=== PATIENT | female | born 1985 | race Caucasian/White ===

== ENCOUNTER 2024-04-05 14:46 | Outpatient (CLI) | payer BC, SELFPAY ==
--- OUTSIDE RECORDS SUMMARY | 2024-04-05 14:48 | XMS_ITS | Clinical Summary ---
Author Name Unknown Organization [facility] [facility] Address [place], [place] [address] Care Team Providers Care Custom Car Builder Name Role Phone Anila Galloway NP Primary Care Provider +1- [phone] Allergies No known active allergies Medications Medication Sig Dispensed Refills Start Date End Date Status ondansetron (ZOFRAN ODT) 4 mg disintegrating tabletIndications:Gastr oenteritis Place 1 Tablet (4 mg) on the tongue two times daily. 10 Tablet 03/20/2024 Active Active Problems No known active problems Encounters Date Type Department Care Team Description 03/20/2024 12:51 PM CDT - 03/20/2024 2:45 PM CDT Emergency [facility] - [address] [place] [address] Carri Jaimes PA-C Gastroenteritis (Primary Dx); Bloody diarrhea Discharge Disposition: Home Self Care 03/09/2024 Lab Requisition [facility] [phone] Viktoriya Morrison MD from Last 3 Months Immunizations Name Administration Dates Next Due Influenza, IIV3 (Age >=3 years) 08/28/2012 Tdap 12/08/2015,03/25/2008 Family History Relation Name Status Comments Brother 1 Alive Brother 2 Alive Father Alive Mother Sister Alive Social History Tobacco Use Types Packs/Day Years Used Date Smoking Tobacco: Never Passive Smoke Exposure: Never Smokeless Tobacco: Never Tobacco Cessation:Counseling Given: No Alcohol Use Standard Drinks/Week Comments Yes 0 (1 standard drink = 0.6 oz pur e alcohol) Maybe 2 a month PHQ-2 Answer Date Recorded PHQ-2 Score 0 05/10/2019 Sex and Gender Information Value Date Recorded Sex Assigned at Not on file Gender Identity Not on file Sexual Orientation Not on file Obstetrics History Para Term AB IAB SAB Ectopic Multiple Livin g Live Births 1 1 1 Date Outcome GA Total Labor Labor/2nd/3rd Weight Sex Delivery Anes PTL Virginie A1 A5 Name Cl in 02/04 Term 40w 0d [place]abe [place]la Comments:[place] [address] Last Filed Vital Signs Vital Sign Reading Time Taken Comments Blood Pressure 168/98 03/20/2024 12:58 PM CDT Pulse 73 03/20/2024 2:00 PM CDT Temperature 36.7 ??C (98.1 ??F) 03/20/2024 12:58 PM C DT Respiratory Rate 18 03/20/2024 12:58 PM CDT Oxygen Saturation 100% 03/20/2024 12:58 PM CDT Inhaled Oxygen Concentration - - Weight 77.1 kg (170 lb) 03/20/2024 12:58 PM CDT Height 157.5 cm (5' 2) 03/20/2024 12:58 PM CDT Body Mass Index 31.09 03/20/2024 12:58 PM CDT Plan of Treatment Health Maintenance Due Date Last Done Comments HIV for age 15-65 1998 Hepatitis C screening for ag e 18-79 2001 Pap test for age 21-65 06/15/2018 5, 06/15/2015 BMI (ht and wt on same day) for age 18+ 02/17/2020 02/16/2019, 04/25/2017 Depression screening for age 12+ 05/10/2020 05/10/2019 COVID-19 vaccine series (2022- season) 2023 Influenza for age 9-49 07/18/2024 08/28/2012 Tetanus booster 12/08/2025 12/08/2015, 03/25/2008 Tdap Completed 12/08/2015, 03/25/2008 Pneumococcal series for age 6-64 Aged Out No longer eligible b ased on patient's age to complete this topic Procedures Procedure Name Priority Date/Time Associated Diagnosis Comments LIPASE STAT 03/20/2024 1:11 PM CDT CBC WITH AUTO DIFFERENTIAL STAT 03/20/2024 1:11 PM CDT BASIC METABOLIC PANEL STAT 03/20/2024 1:11 PM CDT CBC WITH AUTO DIFFERENTIAL STAT 03/20/2024 1:11 PM CDT LAB TRACKING EVENT Routine 03/08/2024 2: 30 PM CDT PATH TISSUE EXAM Routine 03/08/2024 2:30 PM CDT [facility] OFF[facility] THIN PREP PAP SCREEN IMAGED Routine 06/15/2015 12:49 PM CDT from Last 3 Months or Most Recently Relevant to Health Maintenance Results * (ABNORMAL) CBC WITH AUTO DIFFERENTIAL (03/20/2024 1:11 PM CDT) WHITE BLOOD COUNT 7.1 4.6 - 10.2 thou/cu mm 03/20/2024 1:28 PM CDT [facility] RED BLOOD COUNT 4.68 4.04 - 6.13 mil/cu mm 03/20/2024 1:28 PM CDT [facility] HEMOGLOBIN 13.3 12.2 - 18.1 g/dL 03/20/2024 1:28 PM CDT [facility] HEMATOCRIT 39.6 37.7 - 53.7 % 03/20/2024 1:28 PM CDT [facility] MCV 85 80 - 97 fL 03/20/2024 1:28 PM CDT [facility] MCH 28.4 27.0 - 31.2 pg 03/20/2024 1:28 PM CDT [facility] MCHC 33.6 31.8 - 35.4 g/dL 03/20/2024 1:28 PM CDT [facility] RDW 20.6(H) 11.6 - 14.8 % 03/20/2024 1:28 PM CDT [facility] PLATELET COUNT 264 142 - 424 thou/cu mm 03/20/2024 1:28 PM CDT [facility] MPV 8.4 6.5 - 11.0 fL 03/20/2024 1:28 PM CDT [facility] % NEUT 69.3 37.0 - 80.0 % 03/20/2024 1:28 PM CDT [facility] % LYMPH 24.5 10.0 - 50.0 % 03/20/2024 1:28 PM CDT [facility] % MONO 4.9 <=12.0 % 03/20/2024 1:28 PM CDT [facility] % EOS 0.8 <=7.0 % 03/20/2024 1:28 PM CDT [facility] % BASO 0.5 <=2.5 % 03/20/2024 1:28 PM CDT [facility] ABSOLUTE NEUTROPHILS 4.9 2.0 - 6.9 thou/cu mm 03/20/2024 1:28 PM CDT [facility] ABSOLUTE LYMPHOCYTES 1.7 0.6 - 3.4 thou/cu mm 03/20/2024 1:28 PM CDT [facility] ABSOLUTE MONOCYTES 0.3 <=0.9 thou/cu mm 03/20/2024 1:28 PM CDT [facility] ABSOLUTE EOSINOPHILS 0.1 <=0.7 thou/cu mm 03/20/2024 1:28 PM CDT [facility] ABSOLUTE BASOPHILS 0.0 <=0.3 thou/cu mm 03/20/2024 1:28 PM CDT [facility] Blood BLOOD SPECIMEN / Unknown Non-Lab Venipuncture / Unknown 03/20/2024 1:11 PM CDT 03/20/2024 1:17 PM CDT Carri Jaimes PA-C HEMATOLOGY [facility] [address] [place] [address] * LIPASE (03/20/2024 1:11 PM CDT) LIPASE 57 23 - 300 IU/L 03/20/2024 1:38 PM CDT [facility] Blood BLOOD SPECIMEN / Unknown Non-Lab Venipuncture / Unknown 03/20/2024 1:11 PM CDT 03/20/2024 1:17 PM CDT Carri Jaimes PA-C CHEMISTRY [facility] [address] [facility] [place] [address] * BASIC METABOLIC PANEL (03/20/2024 1:11 PM CDT) SODIUM 141 137 - 145 mmol/L 03/20/2024 1:38 PM CDT [facility] POTASSIUM 3.6 3.5 - 5.1 mmol/L 03/20/2024 1:38 PM CDT [facility] CHLORIDE 107 98 - 107 mmol/L 03/20/2024 1:38 PM CDT [facility] CO2,TOTAL 26 22 - 30 mmol/L 03/20/2024 1:38 PM CDT [facility] ANION GAP 8 8 - 12 03/20/2024 1:38 PM CDT [facility] GLUCOSE,RANDOM 103 74 - 106 mg/dL 03/20/2024 1:38 PM CDT [facility] CALCIUM 9.8 8.4 - 10.2 mg/dL 03/20/2024 1:38 PM CDT [facility] [place] [facility] BUN 8 7 - 17 mg/dL 03/20/2024 1:38 PM CDT [facility] CREATININE 0.66 0.52 - 1.04 mg/dL 03/20/2024 1:38 PM CDT [facility] BUN/CREAT RATIO 12 10 - 20 1:38 PM CDT [facility] eGFR >90 >90 mL/min/1.7 3m2 03/20/2024 1:38 PM CDT [facility] Comment:As of 2022, eG FR is calculated by the CKD-EPI creatinine equation without race adjustment. eGFR can be influenced by muscle mass, exercise, and diet. The reported eGFR is an estimation only and is only applicable if the renal function is stable. Blood BLOOD SPECIMEN / Unknown Non-Lab Venipuncture / Unknown 03/20/2024 1:11 PM CDT 03/20/2024 1:17 PM CDT Carri Jaimes PA-C CHEMISTRY Performing Organization Address [facility]/ZIP Co de Phone Number [facility] [address] [place] [address] * LAB TRACKING EVENT (03/08/2024 2:30 PM CDT) Other (Other) Client Collect / Unknown 03/08/2024 2:30 PM CDT 03/09/2024 3:23 PM CDT Viktoriya Morrison MD LAB BILL ONLY [facility] [address] [place] [address], * PATH TISSUE EXAM (03/08/2024 2:30 PM CDT) Case Report Pathology Report ?Case: [id number] ? Authorizing Provider: ??Viktoriya Morrison MD ?? Collected: ? 03/08/2024 1430 ? Ordering Location: ? [facility] ?Received: ?03/09/2024 1621 ? Pathologist: ? Erika Mattson MD ? Specimen: ?Endometrial Biopsy ? 03/11/2024 6:09 PM CDT [facility] Final Diagnosis A) ENDOMETRIUM, BIOPSY: 1. Secretory endometrium, day 16-17, with minute fragment suggesting the possibility of an early endometrial polyp 2. Negative for chronic endometritis 3. Negative for atypia and malignancy 03/11/2024 6:09 PM CDT [facility] Clinical Information Heavy periods, TUNDE 03/11/2024 6:09 PM CDT [facility] Gross Description A) Received in formalin, labeled with the patient's name and date of , is a 2.5 x 1.0 x 0.3 cm aggregate of pink-tyson mucosa admixed with clotted blood. The specimen is entirely submitted in 1 cassette. TLF 03/09/2024 03/11/2024 6:09 PM CDT [facility] Microscopic Description The final diagnosis is based on microscopic examination of appropriate sections of all specimens. 03/11/2024 6:09 PM CDT [facility] Additional Information Interpreted at [facility], Central Laboratory - [address] [place] [id number] 03/11/2024 6:09 PM CDT [facility] Other (Endometrial Biopsy) 03/08/2024 2:30 PM CDT 03/09/2024 4:21 PM CDT Viktoriya Morrison MD PATHOLOGY/CYTOLOG Y [facility] [address] * [facility] THIN PREP PAP SCREEN IMAGED (06/15/2015 12:49 PM CDT) [facility] CYTOLOGY See Anatomic Pathology case 06/20/2015 1:01 PM CDT [facility] Specimen (specimen) (Cervical/Vagina l) Client Collect / Unknown 06/15/2015 12:49 PM CDT 06/15/2015 12:49 PM CDT Mery Barragan MD PATHOLOGY/CYTOLOGY [facility] LABORAT[facility]-CENTRAL LABORATORY [address] [place] [address], [place] from Last 3 Months or Most Recently Relevant to Health Maintenance Care Teams Custom Car Builder Relationship Specialty Start Date End Date Anila Galloway NP [address] [place] [phone] PCP - General Nurse Practitioner 03/20/24
--- NOTE | 2024-04-05 15:00 | US_ITS ---
Patient: JOO WAGNER Facility:?[facility] Patient ID:?[id number] Site Patient ID:?[id number]. Site :?[id number] Study:?US-Pelvis -04/05/2024 3:32:01 PM Ordering Physician:Viktoriya Bhat Final Report: INDICATION: Heavy menses COMPARISON: none TECHNIQUE: 2D mcelroy scale and color Doppler images were acquired of the pelvis using a transabdominal and transvaginal approach. FINDINGS: Sonographic images demonstrate a normal size and smooth outer contour of the uterus. Uterus measures 11.1 cm in length by 5.8 cm in AP diameter by 6.6 cm in transverse dimension. Cystic areas present within the fundal myometrium measuring 14 x 13 x 8 millimeters. The endometrial lining appears thickened, heterogeneous and irregular and measures 2.8 cm in composite thickness. The right ovary measures 4.4 x 2.1 x 3.3 cm in size and the left ovary measures 3.1 x 1.9 x 2.9 cm. The ovaries demonstrate normal arterial and venous blood flow on color Doppler analysis. There are no suspicious fluid collections within the cul-de-sac. IMPRESSION: Thickened and irregular endometrium with heterogeneous echotexture and a small amount of endometrial fluid. The endometrial thickness is 2.8 cm. Dictated by Brian Xiao MD @ 04/06/2024 9:06:04 AM Signed by:?Brian Xiao MD @04/06/2024 9:06:04 AM (Electronic Signature)
== END 2024-04-05 14:47 | disposition home or self-care (01) ==
LOC: US 14:46
PROVIDERS: PCP Nurse Practitioner Family; Visit Provider Obstetrics & Gynecology
DX: N92.0 Excessive and frequent menstruation with regular cycle (principal); R39.89 Other symptoms and signs involving the genitourinary system; Z87.42 Personal history of other diseases of the female genital tract
CPT/HCPCS: 76830; 76856

== ENCOUNTER 2024-09-16 08:57 | Day surgery (SDC) | payer BC, SELFPAY ==
[2024-09-16] VITALS (29 sets, daily range): BP systolic 98–144; BP diastolic 53–89; PULSE 55–97; RESP 12–20; TEMP 36.2–37.3; O2SAT 83–100; BMI 31.8
--- OUTSIDE RECORDS SUMMARY | 2024-09-16 09:00 | XMS_ITS | Clinical Summary ---
Author Organization [employer] [facility] [employer] Address [place], [place] [address] Care Team Providers Care Lead Atg Developer Name Role Phone Anila Galloway MUSIC PROFESSOR Primary Care Provider +1- [phone] Allergies No known active allergies Medications Medication Sig Dispensed Refills Start Date End Date Status ondansetron (ZOFRAN ODT) 4 mg disintegrating tabletIndications:Gastr oenteritis Place 1 Tablet (4 mg) on the tongue two times daily. 10 Tablet 03/20/2024 Active Active Problems No known active problems Immunizations Name Administration Dates Next Due Influenza, [...] Outcome GA Total Labor Labor/2nd/3rd Weight Sex Type Anes PTL Virginie A1 A5 Name Clin 010 Term 40w 0d Edwige a Comments:[place] [address] Last Filed Vital Signs Vital [...] age 12+ 05/10/2020 05/10/2019 COVID-19 vaccine series ( season) 2024 Influenza for age 9-49 07/18/2024 08/28/2012 Tetanus booster 12/08/2025 12/08/2015, 03/25/2008 Tdap Completed 12/08/2015, 03/25/2008 Pneumococcal series for age 6-64 Aged Out No longer eligible b ased on patient's age to complete this topic Procedures Procedure Name Priority Date/Time Associated Diagnosis Comments SHOTBLASTER THIN PREP PAP SCREEN IMAGED Routine 06/15/2015 12:49 PM CDT from Last 3 Months or Most Recently Relevant to Health Maintenance Results * SHOTBLASTER THIN PREP PAP SCREEN IMAGED (06/15/2015 12:49 PM CDT) SHOTBLASTER CYTOLOGY See Anatomic Pathology case 06/20/2015 1:01 PM CDT [facility] Specimen (specimen) (Cervical/Vagina l) Client Collect / Unknown 06/15/2015 12:49 PM CDT 06/15/2015 12:49 PM CDT Mery Barragan MD PATHOLOGY/CYTOLOGY [facility] [facility] [facility]AT[facility]-CENTRAL LABORATORY [address] [place] [address], from Last 3 Months or Most Recently Relevant to Health Maintenance Care Teams Lead Atg Developer Relationship Specialty Start Date End Date Anila Galloway NP PCP - General Nurse Practitioner 03/20/24
[2024-09-16] MEDS: 0.9 % SODIUM CHLORIDE 500 ML 500 ML 100 ML IV (09:30)
--- NOTE | 2024-09-16 09:41 | W.PM.H&PU ---
History & Physical Update History & Physical Update H&P Reviewed and patient assessed: No changes noted
[2024-09-16 09:46] LABS: Creatinine* 0.7 mg/dL (0.5-1.5)
[2024-09-16] MEDS: SODIUM CHLORIDE 0.9 % (FLUSH) 10 ML SYRINGE IVF (09:46)
[2024-09-16 09:47] LABS: Est. Creatinine Clearance* 84.49; Estimated Glomerular Filt Rate 112 ml/min
[2024-09-16 09:53] LABS: Ur HCG Qualitative* Negative (Negative)
[2024-09-16] MEDS: CEFAZOLIN 2 GM INJ IVP (10:11)
[2024-09-16] MEDS: VASOPRESSIN 20 UNIT/ML INJ INJECTION (10:40)
--- NOTE | 2024-09-16 12:17 | W.ANESCHARGE ---
Anesthesia Charges Start Date/Time Anesthesia Start Date: 09/16/24 Anesthesia Start Time: 09:56 Stop Date/Time Anesthesia Stop Date: 09/16/24 Anesthesia Stop Time: 12:14
--- NOTE | 2024-09-16 12:23 | P.GYNPRC_ITS ---
Procedure Note Date of procedure: 09/16/24 Will [facility] bill your pro fee for this procedure?: Yes Pre-op diagnosis: Menorrhagia Post-op diagnosis: Same Procedure: Total vaginal hysterectomy, right fimbriectomy, cystoscopy Anesthesia: MAC and spinal Complications: None Surgeon: Viktoriya Morrison MD Upper Extremity Surgeon: Rupal Payne Estimated blood loss (mL): 75 IV fluids (mL): 300 Urine Output (mL): 500 Pathology: specimen obtained, sent to pathology (uterus, right fimbria) Condition: stable Disposition: PACU Findings: 1. Upon pelvic exam under anesthesia, the cervix and vagina were normal in appearance. Uterus was mobile and anteverted, of normal size and texture. There were no palpable adnexal masses. 2. After removal of uterus, bilateral ovaries were visualized and were normal in appearance. The left tube was never visualized. Own the the fimbrial portion of the right tube was visualized. 3. Upon cystoscopy, performed at the end of the procedure, bilateral ureteral jets were noted and there was no injury to the bladder dome. Procedure Description: Procedure in detail: Patient was taken to the operating room with IV running. Spinal anesthesia was administered. She received cefazolin in preoperative prophylaxis. She was positioned in dorsal lithotomy position with her legs in candy-cane stirrups. Exam under anesthesia was performed for the above noted findings. Parnell catheter was inserted. Weighted speculum was inserted. Cervix was grasped along its anterior and posterior lips with thyroid Som clamps. The cervical vaginal junction was circumferentially infiltrated with dilute vasopressin. The cervical vaginal junction was then incised circumferentially with scalpel. The vaginal epithelium was dissected bluntly off bilateral uterosacral ligaments. Anterior colpotomy was performed sharply, and a Robert retractor was placed between the bladder and the uterus. While it did appear that the anterior uterine serosa was visible, there were apparent adhesions of the fundus 2 the anterior abdominal wall. The posterior colpotomy was performed sharply, and a long weighted speculum was placed in the cul-de-sac. Bilateral uterosacral ligaments were clamped, cut, suture ligated with 0 Vicryl, and tagged for later identification. The cardinal ligaments were serially clamped, cut, and suture ligated bilaterally with 0 Vicryl. The inferior most portions of the broad ligament were clamped, cut, and suture ligated, ultimately freeing the uterus entirely on the left side. This allowed for more examination of the fundal adhesions, which were indeed attached to the anterior fundus. These were serially divided, 1st with clamping, cutting and suture ligation, then with the LigaSure exact device. Finally, the remnants of the right broad ligament were cauterized and transected with the LigaSure Exact device, ultimately freeing the uterus from its attachments to the pelvis. The uterus was delivered through the vagina. Bilateral ovaries were normal in appearance. The right tubal fimbria were grasped with Cathryn clamps, and this portion of the tube was divided from the investing mesosalpinx with the LigaSure exact device, transected, and sent to pathology. The proximal most portion of the tube was not visualized. The left tube was not visualized at all, despite multiple attempts at repositioning and packing the intestines into the abdomen with a laparotomy pack. The pack was removed. The angles of the vaginal cuff were closed with a stitch of 0 Vicryl, incorporating the distal most aspect of the uterosacral pedicle into the closure. The intervening vaginal cuff was closed with a series of [id number] sutures of 0 Vicryl. Hemostasis was noted. All instruments were removed from the vagina. Parnell catheter was removed from the patient's bladder. Patient was administered IV sodium fluorescein to aid in visualization of ureteral jets. Cystoscopy was performed, revealing bilateral ureteral jets and no injury to the bladder. The cystoscope was removed and the Parnell catheter replaced. Postoperative debrief was verbalized with OR staff, including a verification of pathology specimens to be sent as described above. Patient tolerated procedure well and was taken to recovery area in stable condition.
--- NOTE | 2024-09-16 13:01 | W.ANESCHARGE ---
Anesthesia Charges Start Date/Time Anesthesia Start Date: 09/16/24 Anesthesia Start Time: 09:56 Stop Date/Time Anesthesia Stop Date: 09/16/24 Anesthesia Stop Time: 12:14
--- NOTE | 2024-09-16 15:30 | PC.NURSE ---
Nursing Care Hours: [id number] Pt this shift arrived from PACU alert and oriented, no c/o pain. VSS on RA. Duramorph protocol in place. Denies nausea and itching. Tolerating ice chips. Parnell patent. No blood on toby pad. family at bedside. Report given to oncoming nurse.
[2024-09-16] MEDS: KETOROLAC 30 MG/ML inj IVP (18:22)
--- NOTE | 2024-09-16 19:14 | PC.NURSE ---
shift note:pt ambulated in li 150 ft with sba. mills intact with clr yellow urine. pt rating abd cramping 01/24.
[2024-09-17] VITALS (11 sets, daily range): BP systolic 120–130; BP diastolic 66–67; PULSE 63–66; RESP 16–18; TEMP 37–37.1; O2SAT 95–100
[2024-09-17] MEDS: KETOROLAC 30 MG/ML inj IVP (00:51)
--- NOTE | 2024-09-17 06:41 | PC.NURSE ---
Removed pt mills catheter at 0425, tip intact. Encouraged to increase fluids, pt total intake 1800. Though multiple attempts pt was unable to urinate, bladder scanned at 0620 with [address] Pritchard whom stated to allow the pt 6 hours from pulling the mills and re bladder scan. If pt is unable to urinate by this time, mills catheter will need to be replaced. Dr. Pritchard also requested the pt to go for a few walks.
[2024-09-17 06:42] LABS: Hemoglobin* 12.9 gm/dL (12.0-16.0)
[2024-09-17 06:56] LABS: Creatinine* 0.6 mg/dL (0.5-1.5); Est. Creatinine Clearance* 98.58; Estimated Glomerular Filt Rate 116 ml/min
[2024-09-17] MEDS: IBUPROFEN 600 MG TABLET PO (07:16)
--- NOTE | 2024-09-17 07:38 | PC.NURSE ---
Pt alert, oriented and vitally stable. Pt mills cath removed at 0425, since has had 600 cc out. Scant amounts of bleeding in pad. Pt states pain 2/10, tolerating well. Pt up independently, tolerates well.
--- NOTE | 2024-09-17 08:39 | PM.GYNDS1 ---
DS: Providers Provider Time Seen by Provider: 07:50 Date Seen: 09/17/24 Primary care physician: Anila Galloway NP Attending Physician on discharge: Viktoriya Morrison MD [employer]PER[employer]-Discharge Summary Hospital Course Hospital Course Narrative: Patient is a 38 year old admitted on 09/16/2024 for total vaginal hysterectomy, right salpingectomy and diagnostic cystoscopy. Left salpingectomy was not performed as the tube could not be visualized vaginally. Indication for surgery: Abnormal uterine bleeding. Intraoperative findings were notable for adhesive disease in the anterior cul-de-sac, inability to visualize the left to. Please see Dr. Morrison's operative note for complete details. She had an uncomplicated surgery. Postoperative course has been uneventful. Vitals have been stable. She has remained afebrile. Today, on postoperative day 1, she reports the pain is well controlled on NSAIDs and Tylenol. She has been able to ambulate without difficulty. She is tolerating regular diet without nausea vomiting. She is passing flatus. Parnell catheter has been removed, and she initially had some hesitancy. She now has had 2 voids without difficulty. Patient notes small vaginal bleeding with her 1st void, now reduced. Time Spent with Patient Time attestation: Total time spent providing and/or coordinating discharge services: Time spent: Less than 30 minutes [employer] - Exam Physical Exam: Vital signs: Temp Pulse Resp BP Pulse Ox O2 Del Method 98.7 F 66 16 120/66 100 Room Air 09/17/24 03:00 09/17/24 03:00 09/17/24 07:19 09/17/24 03:00 09/17/24 03:00 09/17/24 03:00 Narrative: General: Alert and oriented, in no acute distress Psych: Appropriate mood and affect Abdomen: Soft, nondistended. Mild tenderness to palpation across the low abdomen, consistent with postoperative state. No rebound or guarding. Extremities: SCDs off a this time. Calves are without edema, erythema or tenderness. [employer] - DS: Data Data Completed and Pending Labs on day of discharge: Labs from last 24 hours 09/17/24 09/16/24 09/16/24 06:19 09:40 09:24 Hgb 12.9 13.0 Creatinine 0.6 0.7 Estimated Creat Clear 98.58 84.49 Estimated GFR 116 112 Urine HCG, Qual Negative Blood Type O Positive Antibody Screen NEGATIVE Procedures Procedures: Procedures Operation Date: 09/16/24 10:25 Actual Procedure Side Surgeon p M/S-Total Vaginal Hysterectomy, fimbriectomy, Cystoscopy Not Applicable Viktoriya Morrison MD Discharge Plan Discharge Disposition: Home w/ Parent or Adult Discharging Surgeon: Rupal Payne Follow-Up Appointment: 2 and 6 week post-op in [facility] Prescriptions: New acetaminophen 325 mg Tablet 650 mg PO Q4H PRN (Reason: minor pain) Qty: 0 0RF ibuprofen 600 mg Tablet 600 mg PO Q6H Qty: 60 0RF simethicone 80 mg Tablet,Chewable 160 mg PO Q4H PRN (Reason: gas) Qty: 0 0RF oxycodone 5 mg Tablet 5 mg PO Q4H PRN (Reason: Moderate Pain) Qty: 20 0RF Continued cholecalciferol (vitamin D3) 125 mcg (5,000 unit) capsule 125 mcg PO QDAY No Action pyridoxine (vitamin B6) 50 mg tablet PO DAILY ferrous sulfate 325 mg (65 mg iron) tablet 325 mg PO QDAY omega [id number]-slw-fish oil [Fish Oil] 60-90-500 mg capsule 1 cap PO QDAY Additional Instructions: Lifting restrictions: Please do not lift more than 20lbs for 6 weeks Sexual restriction: Pelvic rest for 6 weeks Pain control: Over the counter Motrin 600 mg by mouth every six hours on a full stomach for pain as needed Over the counter Acetaminophen 1000 mg by mouth every six hours on a full stomach for pain as needed Oxycodone 5mg every 4 hours as needed for breakthrough pain Please call with: - Heavy vaginal bleeding - Increasing or severe abdominal pain - Fevers/chills - Inability to tolerate solid/liquids by mouth, recurrent nausea/vomiting - Incision redness/drainage - Signs or symptoms of a blood clot - calf pain, redness, swelling, chest pain or shortness of breath Follow-up: Anila Galloway NP [Primary Care Provider] - Discharge Orders: Discharge Order (Routine); Ordered 09/17/24 Ordered By: Rupal Payne
[2024-09-17] MEDS: ACETAMINOPHEN 325 MG TABLET 650 MG PO (10:03)
[2024-09-17] MEDS: SIMETHICONE 80 MG TAB.CHEW 160 MG PO (10:04)
--- NOTE | 2024-09-17 12:06 | PC.NURSE ---
Discharge: The patient discharged home with her . All belongings were accounted for. Instructions regarding F/U, S/S and lifting restrictions were discussed with the patient and her . tolerating a regular diet with no N/V. Minimal vaginal bleeding was reported by the patient. All paperwork was sent with the patient. Brielle HIGH BSN
== END 2024-09-17 10:40 | disposition home or self-care (01) ==
LOC: OR 08:58 → MEDSURG 09:00
PROVIDERS: PCP Nurse Practitioner Family; Visit Provider Obstetrics & Gynecology
PROC: (CPT 58262; principal; 2024-09-16 10:15)
DX: N92.0 Excessive and frequent menstruation with regular cycle (principal); N72 Inflammatory disease of cervix uteri; D25.1 Intramural leiomyoma of uterus; N83.8 Other noninflammatory disorders of ovary, fallopian tube and broad ligament; N73.6 Female pelvic peritoneal adhesions (postinfective)
CPT/HCPCS: 58262; 00944; 36415; 51701; 51798; 81025; 82565; 85018; 86850; 86900; 86901; 88307; A9270; J0690; J1100; J1885; J2250; J2274; J2405; J2704; J3010; J7030